=== PATIENT | male | born 1975 | race Hispanic/Latino ===

== ENCOUNTER 2020-09-24 12:54 | Inpatient (IN) | payer SELFPAY ==
[~2020-09-24] VITALS: Ht 172.7 cm; Wt 120.2 kg
[2020-09-24] MEDS ORDERED: DEXAMETHASONE SOD PHOS 10 MG/1 ML VIAL IV ONE (13:15)
[2020-09-24 14:13] LABS: BASOPHILS % 0.1 % (0.0-1.0); EOSINOPHILS % 0.2 % (0.0-6.0); HEMATOCRIT 40.2 % (38.2-49.6); HEMOGLOBIN 13.2 g/dL (14.0-18.0); LYMPHOCYTES # (AUTO) 0.6 (1.0-3.2); LYMPHOCYTES % 6.3 % (18.0-39.1); MEAN CORPUSCULAR HEMOGLOBIN 28.4 pg (28-32); MEAN CORPUSCULAR HGB CONC 32.8 g/dL (31-35); MEAN CORPUSCULAR VOLUME 86.6 fL (81-99); MONOCYTES # (AUTO) 0.3 (0.2-0.8); MONOCYTES % 2.9 % (4.4-11.3); NEUTROPHILS # (AUTO) 8.6 (2.1-6.9); PLATELET COUNT 299 x10e3/uL (140-360); RED BLOOD COUNT 4.64 x10e6/uL (4.3-5.7)
[2020-09-24 14:29] LABS: ALANINE AMINOTRANSFERASE 55 IU/L (0-55); ALBUMIN 2.9 g/dL (3.5-5.0); ALBUMIN/GLOBULIN RATIO 0.6 (0.8-2.0); ALKALINE PHOSPHATASE 108 IU/L (40-150); ANION GAP 16.3 mmol/L (8-16); BLOOD UREA NITROGEN 8 mg/dL (7-26); BUN/CREATININE RATIO 8 (6-25); CALCIUM 8.7 mg/dL (8.4-10.2); CARBON DIOXIDE 27 mmol/L (22-29); CHLORIDE 96 mmol/L (98-107); CREATININE, SERUM 0.97 mg/dL (0.72-1.25); EST GLOMERULAR FILTRATION RATE > 60 ML/MIN (60-); GLUCOSE 103 mg/dL (74-118); POTASSIUM 4.3 mmol/L (3.5-5.1); SODIUM 135 mmol/L (136-145)
[2020-09-24] MEDS ORDERED: ONDANSETRON HCL INJ 2MG/ML 2ML 2 MG/ML VIAL IV PRN (16:15)
[2020-09-24] MEDS ORDERED: MORPHINE SULFATE INJ 4 MG/ML INJ 1ML IV PRN (16:15)
[2020-09-24] MEDS ORDERED: MORPHINE SULFATE INJ 2 MG/ML SYR IV PRN (16:30)
[2020-09-24] MEDS ORDERED: AZITHROMYCIN 250 MG TAB PO ONE (20:30)
[2020-09-24] MEDS: CEFTRIAXONE SOD 1 GM/NS 50 ML 50 ML IV SCH (20:42)
[2020-09-24] MEDS ORDERED: SODIUM CHLORIDE 0.9% 1000ML 2,000 ML ONE (21:43)
[2020-09-24] MEDS ORDERED: ACETAMINOPHEN 325 MG TAB PO PRN (22:15)
[2020-09-24] MEDS: PANTOPRAZOLE SOD 40 MG TABEC PO SCH (22:43)
[2020-09-25 00:23] LABS: ABG HCO3 27 mmol/L (22-26); ABG PCO2 42 mmHg (35-45); ABG PH 7.42 (7.35-7.45); ABG PO2 61 mmHg (80-105); ABG TCO2 28
[2020-09-25 04:14] LABS: BASOPHILS % 0.1 % (0.0-1.0); HEMATOCRIT 37.8 % (38.2-49.6); HEMOGLOBIN 12.2 g/dL (14.0-18.0); LYMPHOCYTES # (AUTO) 0.6 (1.0-3.2); LYMPHOCYTES % 6.7 % (18.0-39.1); MEAN CORPUSCULAR HGB CONC 32.3 g/dL (31-35); MEAN CORPUSCULAR VOLUME 86.9 fL (81-99); MONOCYTES # (AUTO) 0.2 (0.2-0.8); MONOCYTES % 2.9 % (4.4-11.3); NEUTROPHILS # (AUTO) 7.5 (2.1-6.9); NEUTROPHILS % 89.7 % (38.7-80.0); PLATELET COUNT 316 x10e3/uL (140-360); RED BLOOD COUNT 4.35 x10e6/uL (4.3-5.7)
[2020-09-25 04:36] LABS: ALANINE AMINOTRANSFERASE 51 IU/L (0-55); ALBUMIN 2.7 g/dL (3.5-5.0); ALBUMIN/GLOBULIN RATIO 0.5 (0.8-2.0); ALKALINE PHOSPHATASE 113 IU/L (40-150); ANION GAP 16.5 mmol/L (8-16); BLOOD UREA NITROGEN 14 mg/dL (7-26); BUN/CREATININE RATIO 12 (6-25); CALCIUM 8.5 mg/dL (8.4-10.2); CARBON DIOXIDE 26 mmol/L (22-29); CHLORIDE 98 mmol/L (98-107); CREATININE, SERUM 1.14 mg/dL (0.72-1.25); EST GLOMERULAR FILTRATION RATE > 60 ML/MIN (60-); GLUCOSE 143 mg/dL (74-118); MAGNESIUM 2.4 MG/DL (1.3-2.1); POTASSIUM 4.5 mmol/L (3.5-5.1); SODIUM 136 mmol/L (136-145)
[2020-09-25] MEDS: DEXAMETHASONE SOD PHOS 10 MG/1 ML VIAL IV SCH (07:25)
[2020-09-25] MEDS: CEFTRIAXONE SOD 1 GM/NS 50 ML 50 ML IV SCH (07:25)
[2020-09-25] MEDS: PANTOPRAZOLE SOD 40 MG TABEC PO SCH (07:30)
[2020-09-25] MEDS ORDERED: AZITHROMYCIN 250 MG TAB PO SCH (09:00)
[2020-09-25 09:48] VITALS: BP 128/86
[2020-09-25 09:49] VITALS: BP 128/86
[2020-09-25 15:15] VITALS: BP 144/104
[2020-09-25] MEDS ORDERED: REMDESIVIR 200MG/NS 100ML 200 MG IV ONE (15:30)
[2020-09-25] MEDS ORDERED: IOPAMIDOL 370 MG/ML 200 ML INFUS..BTL INJ ONE (16:31)
[2020-09-25] MEDS ORDERED: SODIUM CHLORIDE 0.9% 50ML 50 ML ONE (16:31)
[2020-09-25] MEDS: ASCORBIC ACID 500 MG TAB PO SCH (18:10)
[2020-09-25 20:19] VITALS: BP 149/80
[2020-09-25 21:18] VITALS: BP 149/80
[2020-09-26] VITALS (7 sets, daily range): BP systolic 106–126; BP diastolic 64–88
[2020-09-26] MEDS: PANTOPRAZOLE SOD 40 MG TABEC PO SCH (07:59)
[2020-09-26] MEDS: DEXAMETHASONE SOD PHOS 10 MG/1 ML VIAL IV SCH (08:02)
[2020-09-26] MEDS: ZINC SULFATE 220 MG CAP PO SCH (08:02)
[2020-09-26] MEDS: ASCORBIC ACID 500 MG TAB PO SCH ×2 (08:02→16:44)
[2020-09-26] MEDS: AZITHROMYCIN 500MG/NS 250 ML 250 ML IV SCH (08:02)
[2020-09-26] MEDS: CEFTRIAXONE SOD 2 GM/NS 100 ML 100 ML IV SCH (08:02)
[2020-09-26] MEDS: ENOXAPARIN INJ 80 MG/0.8 ML SYR SC SCH (11:49)
[2020-09-26] MEDS: REMDESIVIR 100MG/NS 100ML 100 MG IV SCH (14:35)
[2020-09-26 14:45] LABS: BASOPHILS % 0.1 % (0.0-1.0); HEMATOCRIT 40.1 % (38.2-49.6); HEMOGLOBIN 12.7 g/dL (14.0-18.0); LYMPHOCYTES # (AUTO) 0.7 (1.0-3.2); LYMPHOCYTES % 6.8 % (18.0-39.1); MEAN CORPUSCULAR HEMOGLOBIN 27.8 pg (28-32); MEAN CORPUSCULAR HGB CONC 31.7 g/dL (31-35); MEAN CORPUSCULAR VOLUME 87.7 fL (81-99); MONOCYTES # (AUTO) 0.6 (0.2-0.8); MONOCYTES % 5.4 % (4.4-11.3); NEUTROPHILS # (AUTO) 9.1 (2.1-6.9); NEUTROPHILS % 86.7 % (38.7-80.0); PLATELET COUNT 422 x10e3/uL (140-360); RED BLOOD COUNT 4.57 x10e6/uL (4.3-5.7); RED CELL DISTRIBUTION WIDTH 14.4 % (11.7-14.4)
[2020-09-26 15:03] LABS: ALANINE AMINOTRANSFERASE 61 IU/L (0-55); ALBUMIN 2.6 g/dL (3.5-5.0); ALBUMIN/GLOBULIN RATIO 0.5 (0.8-2.0); ALKALINE PHOSPHATASE 87 IU/L (40-150); ANION GAP 17.9 mmol/L (8-16); BLOOD UREA NITROGEN 22 mg/dL (7-26); BUN/CREATININE RATIO 21 (6-25); CALCIUM 8.5 mg/dL (8.4-10.2); CARBON DIOXIDE 25 mmol/L (22-29); CHLORIDE 102 mmol/L (98-107); CREATININE, SERUM 1.04 mg/dL (0.72-1.25); EST GLOMERULAR FILTRATION RATE > 60 ML/MIN (60-); GLUCOSE 164 mg/dL (74-118); POTASSIUM 4.9 mmol/L (3.5-5.1); SODIUM 140 mmol/L (136-145)
[2020-09-26] MEDS ORDERED: HYDROCODONE/APAP 5MG-325MG TAB PO PRN (16:00)
[2020-09-26] MEDS: ALBUTEROL SULFATE HFA 8GM INHALATION AEROSOL INH SCH (20:15)
[2020-09-27] VITALS (7 sets, daily range): BP systolic 97–109; BP diastolic 51–81
[2020-09-27] MEDS: ALBUTEROL SULFATE HFA 8GM INHALATION AEROSOL INH SCH ×5 (02:30→23:32)
[2020-09-27 04:49] LABS: BASOPHILS % 0.1 % (0.0-1.0); HEMATOCRIT 39.1 % (38.2-49.6); HEMOGLOBIN 12.6 g/dL (14.0-18.0); LYMPHOCYTES # (AUTO) 1.2 (1.0-3.2); LYMPHOCYTES % 10.1 % (18.0-39.1); MEAN CORPUSCULAR HEMOGLOBIN 28.4 pg (28-32); MEAN CORPUSCULAR HGB CONC 32.2 g/dL (31-35); MEAN CORPUSCULAR VOLUME 88.3 fL (81-99); MONOCYTES # (AUTO) 0.8 (0.2-0.8); MONOCYTES % 7.1 % (4.4-11.3); NEUTROPHILS # (AUTO) 9.4 (2.1-6.9); NEUTROPHILS % 81.6 % (38.7-80.0); PLATELET COUNT 442 x10e3/uL (140-360); RED BLOOD COUNT 4.43 x10e6/uL (4.3-5.7); RED CELL DISTRIBUTION WIDTH 14.2 % (11.7-14.4)
[2020-09-27 05:18] LABS: ALANINE AMINOTRANSFERASE 66 IU/L (0-55); ALBUMIN 2.6 g/dL (3.5-5.0); ALBUMIN/GLOBULIN RATIO 0.6 (0.8-2.0); ALKALINE PHOSPHATASE 85 IU/L (40-150); ANION GAP 16.6 mmol/L (8-16); BLOOD UREA NITROGEN 25 mg/dL (7-26); BUN/CREATININE RATIO 26 (6-25); CALCIUM 8.2 mg/dL (8.4-10.2); CARBON DIOXIDE 26 mmol/L (22-29); CHLORIDE 101 mmol/L (98-107); CREATININE, SERUM 0.98 mg/dL (0.72-1.25); EST GLOMERULAR FILTRATION RATE > 60 ML/MIN (60-); GLUCOSE 122 mg/dL (74-118); POTASSIUM 4.6 mmol/L (3.5-5.1); SODIUM 139 mmol/L (136-145)
[2020-09-27] MEDS: CEFTRIAXONE SOD 2 GM/NS 100 ML 100 ML IV SCH (08:22)
[2020-09-27] MEDS: DEXAMETHASONE SOD PHOS 10 MG/1 ML VIAL IV SCH (08:22)
[2020-09-27] MEDS: AZITHROMYCIN 500MG/NS 250 ML 250 ML IV SCH (08:22)
[2020-09-27] MEDS: ZINC SULFATE 220 MG CAP PO SCH (08:22)
[2020-09-27] MEDS: PANTOPRAZOLE SOD 40 MG TABEC PO SCH (08:22)
[2020-09-27] MEDS: ASCORBIC ACID 500 MG TAB PO SCH ×2 (08:22→17:45)
[2020-09-27] MEDS: ENOXAPARIN INJ 80 MG/0.8 ML SYR SC SCH (11:48)
[2020-09-27] MEDS: REMDESIVIR 100MG/NS 100ML 100 MG IV SCH (15:50)
[2020-09-28 03:00] VITALS: BP 117/83
[2020-09-28 05:19] LABS: BASOPHILS % 0.3 % (0.0-1.0); HEMATOCRIT 40.2 % (38.2-49.6); HEMOGLOBIN 12.7 g/dL (14.0-18.0); LYMPHOCYTES # (AUTO) 1.5 (1.0-3.2); LYMPHOCYTES % 12.9 % (18.0-39.1); MEAN CORPUSCULAR HGB CONC 31.6 g/dL (31-35); MEAN CORPUSCULAR VOLUME 88.5 fL (81-99); MONOCYTES % 8.2 % (4.4-11.3); NEUTROPHILS # (AUTO) 8.9 (2.1-6.9); NEUTROPHILS % 75.8 % (38.7-80.0); PLATELET COUNT 511 x10e3/uL (140-360); RED BLOOD COUNT 4.54 x10e6/uL (4.3-5.7); RED CELL DISTRIBUTION WIDTH 14.1 % (11.7-14.4)
[2020-09-28 05:38] LABS: ALANINE AMINOTRANSFERASE 56 IU/L (0-55); ALBUMIN 2.6 g/dL (3.5-5.0); ALBUMIN/GLOBULIN RATIO 0.6 (0.8-2.0); ALKALINE PHOSPHATASE 78 IU/L (40-150); ANION GAP 14.6 mmol/L (8-16); BLOOD UREA NITROGEN 24 mg/dL (7-26); BUN/CREATININE RATIO 24 (6-25); CALCIUM 8.2 mg/dL (8.4-10.2); CARBON DIOXIDE 26 mmol/L (22-29); CHLORIDE 102 mmol/L (98-107); CREATININE, SERUM 0.98 mg/dL (0.72-1.25); EST GLOMERULAR FILTRATION RATE > 60 ML/MIN (60-); GLUCOSE 109 mg/dL (74-118); POTASSIUM 4.6 mmol/L (3.5-5.1); SODIUM 138 mmol/L (136-145)
[2020-09-28] MEDS: ALBUTEROL SULFATE HFA 8GM INHALATION AEROSOL INH SCH ×3 (07:00→19:00)
[2020-09-28 08:00] VITALS: BP 108/71
[2020-09-28 10:20] VITALS: BP 117/83
[2020-09-28] MEDS: AZITHROMYCIN 500MG/NS 250 ML 250 ML IV SCH (10:33)
[2020-09-28] MEDS: ASCORBIC ACID 500 MG TAB PO SCH ×2 (10:33→17:44)
[2020-09-28] MEDS: PANTOPRAZOLE SOD 40 MG TABEC PO SCH (10:33)
[2020-09-28] MEDS: ZINC SULFATE 220 MG CAP PO SCH (10:33)
[2020-09-28] MEDS: ENOXAPARIN INJ 80 MG/0.8 ML SYR SC SCH (10:33)
[2020-09-28] MEDS: DEXAMETHASONE SOD PHOS 10 MG/1 ML VIAL IV SCH (10:33)
[2020-09-28] MEDS: CEFTRIAXONE SOD 2 GM/NS 100 ML 100 ML IV SCH (10:41)
[2020-09-28] MEDS: REMDESIVIR 100MG/NS 100ML 100 MG IV SCH (15:15)
[2020-09-28 17:44] VITALS: BP 110/85
[2020-09-28 19:00] VITALS: BP 114/63
[2020-09-28 23:00] VITALS: BP 97/53
[2020-09-29] VITALS (7 sets, daily range): BP systolic 98–120; BP diastolic 59–73
[2020-09-29] MEDS: ALBUTEROL SULFATE HFA 8GM INHALATION AEROSOL INH SCH ×4 (01:00→19:00)
[2020-09-29 04:55] LABS: BASOPHILS % 0.3 % (0.0-1.0); EOSINOPHILS % 0.3 % (0.0-6.0); HEMATOCRIT 38.9 % (38.2-49.6); HEMOGLOBIN 12.6 g/dL (14.0-18.0); LYMPHOCYTES # (AUTO) 1.7 (1.0-3.2); LYMPHOCYTES % 14.6 % (18.0-39.1); MEAN CORPUSCULAR HEMOGLOBIN 28.4 pg (28-32); MEAN CORPUSCULAR HGB CONC 32.4 g/dL (31-35); MEAN CORPUSCULAR VOLUME 87.8 fL (81-99); MONOCYTES # (AUTO) 1.1 (0.2-0.8); MONOCYTES % 9.3 % (4.4-11.3); NEUTROPHILS # (AUTO) 8.5 (2.1-6.9); NEUTROPHILS % 71.2 % (38.7-80.0); PLATELET COUNT 495 x10e3/uL (140-360); RED BLOOD COUNT 4.43 x10e6/uL (4.3-5.7); RED CELL DISTRIBUTION WIDTH 13.9 % (11.7-14.4)
[2020-09-29 05:16] LABS: ALANINE AMINOTRANSFERASE 47 IU/L (0-55); ALBUMIN 2.5 g/dL (3.5-5.0); ALBUMIN/GLOBULIN RATIO 0.7 (0.8-2.0); ALKALINE PHOSPHATASE 71 IU/L (40-150); ANION GAP 13.3 mmol/L (8-16); BLOOD UREA NITROGEN 22 mg/dL (7-26); BUN/CREATININE RATIO 24 (6-25); CALCIUM 8.1 mg/dL (8.4-10.2); CARBON DIOXIDE 26 mmol/L (22-29); CHLORIDE 101 mmol/L (98-107); CREATININE, SERUM 0.92 mg/dL (0.72-1.25); EST GLOMERULAR FILTRATION RATE > 60 ML/MIN (60-); GLUCOSE 102 mg/dL (74-118); POTASSIUM 4.3 mmol/L (3.5-5.1); SODIUM 136 mmol/L (136-145)
[2020-09-29] MEDS: PANTOPRAZOLE SOD 40 MG TABEC PO SCH ×2 (07:30→16:19)
[2020-09-29] MEDS: ASCORBIC ACID 500 MG TAB PO SCH ×2 (16:07→16:20)
[2020-09-29] MEDS: DEXAMETHASONE SOD PHOS 10 MG/1 ML VIAL IV SCH (16:19)
[2020-09-29] MEDS: ZINC SULFATE 220 MG CAP PO SCH (16:19)
[2020-09-29] MEDS: ENOXAPARIN INJ 80 MG/0.8 ML SYR SC SCH (16:23)
[2020-09-29] MEDS: CEFTRIAXONE SOD 2 GM/NS 100 ML 100 ML IV SCH (16:25)
[2020-09-29] MEDS: REMDESIVIR 100MG/NS 100ML 100 MG IV SCH (16:49)
[2020-09-30] VITALS (8 sets, daily range): BP systolic 95–123; BP diastolic 52–73
[2020-09-30] MEDS: ALBUTEROL SULFATE HFA 8GM INHALATION AEROSOL INH SCH ×4 (01:00→20:10)
[2020-09-30 07:07] LABS: ALANINE AMINOTRANSFERASE 47 IU/L (0-55); ALBUMIN 2.6 g/dL (3.5-5.0); ALBUMIN/GLOBULIN RATIO 0.7 (0.8-2.0); ALKALINE PHOSPHATASE 88 IU/L (40-150); ANION GAP 13.5 mmol/L (8-16); BLOOD UREA NITROGEN 21 mg/dL (7-26); BUN/CREATININE RATIO 22 (6-25); CALCIUM 8.3 mg/dL (8.4-10.2); CARBON DIOXIDE 27 mmol/L (22-29); CHLORIDE 100 mmol/L (98-107); CREATININE, SERUM 0.97 mg/dL (0.72-1.25); EST GLOMERULAR FILTRATION RATE > 60 ML/MIN (60-); GLUCOSE 109 mg/dL (74-118); POTASSIUM 4.5 mmol/L (3.5-5.1); SODIUM 136 mmol/L (136-145)
[2020-09-30 07:13] LABS: BASOPHILS # (AUTO) 0.1 (0.0-0.1); BASOPHILS % 0.4 % (0.0-1.0); EOSINOPHILS # (AUTO) 0.1 (0.0-0.4); EOSINOPHILS % 0.5 % (0.0-6.0); HEMATOCRIT 40.9 % (38.2-49.6); HEMOGLOBIN 13.1 g/dL (14.0-18.0); LYMPHOCYTES # (AUTO) 1.2 (1.0-3.2); LYMPHOCYTES % 10.4 % (18.0-39.1); MEAN CORPUSCULAR HEMOGLOBIN 28.2 pg (28-32); NEUTROPHILS # (AUTO) 9.1 (2.1-6.9); NEUTROPHILS % 76.2 % (38.7-80.0); PLATELET COUNT 549 x10e3/uL (140-360); RED BLOOD COUNT 4.65 x10e6/uL (4.3-5.7)
[2020-09-30] MEDS: DEXAMETHASONE SOD PHOS 10 MG/1 ML VIAL IV SCH (09:46)
[2020-09-30] MEDS: CHOLECALCIFEROL 400 UNIT TAB PO SCH (09:47)
[2020-09-30] MEDS: ZINC SULFATE 220 MG CAP PO SCH (09:47)
[2020-09-30] MEDS: ASCORBIC ACID 500 MG TAB PO SCH ×2 (09:47→19:55)
[2020-09-30] MEDS: PANTOPRAZOLE SOD 40 MG TABEC PO SCH (09:55)
[2020-09-30] MEDS: CEFTRIAXONE SOD 2 GM/NS 100 ML 100 ML IV SCH (09:55)
[2020-09-30] MEDS: ENOXAPARIN INJ 80 MG/0.8 ML SYR SC SCH (11:58)
[2020-10-01] VITALS (9 sets, daily range): BP systolic 93–141; BP diastolic 46–81
[2020-10-01] MEDS: ALBUTEROL SULFATE HFA 8GM INHALATION AEROSOL INH SCH ×3 (01:20→13:00)
[2020-10-01 06:32] LABS: ALANINE AMINOTRANSFERASE 32 IU/L (0-55); ALBUMIN 2.5 g/dL (3.5-5.0); ALBUMIN/GLOBULIN RATIO 0.7 (0.8-2.0); ALKALINE PHOSPHATASE 86 IU/L (40-150); ANION GAP 12.3 mmol/L (8-16); BLOOD UREA NITROGEN 20 mg/dL (7-26); BUN/CREATININE RATIO 22 (6-25); CALCIUM 8.1 mg/dL (8.4-10.2); CARBON DIOXIDE 29 mmol/L (22-29); CHLORIDE 102 mmol/L (98-107); EST GLOMERULAR FILTRATION RATE > 60 ML/MIN (60-); GLUCOSE 129 mg/dL (74-118); POTASSIUM 4.3 mmol/L (3.5-5.1); SODIUM 139 mmol/L (136-145)
[2020-10-01 07:20] LABS: BASOPHILS % 0.3 % (0.0-1.0); EOSINOPHILS # (AUTO) 0.2 (0.0-0.4); EOSINOPHILS % 1.3 % (0.0-6.0); HEMATOCRIT 40.5 % (38.2-49.6); LYMPHOCYTES # (AUTO) 1.6 (1.0-3.2); LYMPHOCYTES % 12.7 % (18.0-39.1); MEAN CORPUSCULAR HEMOGLOBIN 28.3 pg (28-32); MEAN CORPUSCULAR HGB CONC 32.1 g/dL (31-35); MEAN CORPUSCULAR VOLUME 88.2 fL (81-99); MONOCYTES # (AUTO) 1.2 (0.2-0.8); MONOCYTES % 9.1 % (4.4-11.3); NEUTROPHILS # (AUTO) 9.2 (2.1-6.9); NEUTROPHILS % 72.7 % (38.7-80.0); PLATELET COUNT 551 x10e3/uL (140-360); RED BLOOD COUNT 4.59 x10e6/uL (4.3-5.7); RED CELL DISTRIBUTION WIDTH 14.1 % (11.7-14.4)
[2020-10-01] MEDS: PANTOPRAZOLE SOD 40 MG TABEC PO SCH (08:02)
[2020-10-01] MEDS: ASCORBIC ACID 500 MG TAB PO SCH ×2 (08:03→17:05)
[2020-10-01] MEDS: DEXAMETHASONE SOD PHOS 10 MG/1 ML VIAL IV SCH (08:03)
[2020-10-01] MEDS: CHOLECALCIFEROL 400 UNIT TAB PO SCH (08:03)
[2020-10-01] MEDS: ZINC SULFATE 220 MG CAP PO SCH (08:03)
[2020-10-01] MEDS: ENOXAPARIN INJ 80 MG/0.8 ML SYR SC SCH (12:19)
[2020-10-02 00:04] VITALS: BP 91/69
[2020-10-02 04:20] VITALS: BP 108/63
[2020-10-02 06:11] LABS: BASOPHILS % 0.3 % (0.0-1.0); EOSINOPHILS % 0.3 % (0.0-6.0); HEMATOCRIT 40.1 % (38.2-49.6); LYMPHOCYTES # (AUTO) 1.6 (1.0-3.2); LYMPHOCYTES % 11.2 % (18.0-39.1); MEAN CORPUSCULAR HEMOGLOBIN 28.4 pg (28-32); MEAN CORPUSCULAR HGB CONC 32.4 g/dL (31-35); MEAN CORPUSCULAR VOLUME 87.7 fL (81-99); MONOCYTES # (AUTO) 1.1 (0.2-0.8); MONOCYTES % 7.7 % (4.4-11.3); NEUTROPHILS # (AUTO) 10.9 (2.1-6.9); NEUTROPHILS % 77.6 % (38.7-80.0); PLATELET COUNT 539 x10e3/uL (140-360); RED BLOOD COUNT 4.57 x10e6/uL (4.3-5.7); RED CELL DISTRIBUTION WIDTH 14.1 % (11.7-14.4)
[2020-10-02 06:34] LABS: ALANINE AMINOTRANSFERASE 29 IU/L (0-55); ALBUMIN 2.7 g/dL (3.5-5.0); ALBUMIN/GLOBULIN RATIO 0.8 (0.8-2.0); ALKALINE PHOSPHATASE 68 IU/L (40-150); ANION GAP 12.3 mmol/L (8-16); BLOOD UREA NITROGEN 26 mg/dL (7-26); BUN/CREATININE RATIO 24 (6-25); CALCIUM 8.3 mg/dL (8.4-10.2); CARBON DIOXIDE 31 mmol/L (22-29); CHLORIDE 98 mmol/L (98-107); CREATININE, SERUM 1.09 mg/dL (0.72-1.25); EST GLOMERULAR FILTRATION RATE > 60 ML/MIN (60-); GLUCOSE 98 mg/dL (74-118); POTASSIUM 4.3 mmol/L (3.5-5.1); SODIUM 137 mmol/L (136-145)
[2020-10-02 08:41] VITALS: BP 102/96
[2020-10-02] MEDS: PANTOPRAZOLE SOD 40 MG TABEC PO SCH (08:57)
[2020-10-02] MEDS: ASCORBIC ACID 500 MG TAB PO SCH (08:57)
[2020-10-02] MEDS: ZINC SULFATE 220 MG CAP PO SCH (08:57)
[2020-10-02] MEDS: CHOLECALCIFEROL 400 UNIT TAB PO SCH (08:57)
[2020-10-02] MEDS ORDERED: DEXAMETHASONE 4 MG TAB PO SCH (09:00)
[2020-10-02] MEDS ORDERED: APIXAB 2.5 MG TABLET PO SCH (09:00)
[2020-10-02 09:03] VITALS: BP 102/96
[2020-10-02] MEDS ORDERED: DECADRON4 M1 PO (10:09)
[2020-10-02] MEDS ORDERED: PROTONIX40 MG/ML PO (10:09)
[2020-10-02] MEDS ORDERED: ELIQUIS2.5 MG PO (10:09)
[2020-10-02] MEDS ORDERED: ONDANSETRON HCL 4 MG ORAL DISINTEGRATING TAB PO PRN (14:00)
[2020-10-02] MEDS ORDERED: OMEPRAZOLE40 MG PO (15:35)
== END 2020-10-02 16:12 | disposition home or self-care (01) | DRG 177 ==
LOC: ER 12:58 → ERHOLD 16:05 → IMCU 09-25 09:30 → OBSVTOIN 09-25 11:22 → MED/SURG3 10-01 16:43
PROVIDERS: ADMIT Internal Medicine; ATTEND Internal Medicine
PROC: 02HV33Z Insertion of Infusion Device into Superior Vena Cava, Percutaneous Approach (ICD-10-PCS; principal; 2020-09-25)
PROC: B548ZZA Ultrasonography of Superior Vena Cava, Guidance (ICD-10-PCS; 2020-09-25)
PROC: 8E0ZXY6 Isolation (ICD-10-PCS; 2020-09-25)
PROC: XW033E5 Introduction of Remdesivir Anti-infective into Peripheral Vein, Percutaneous Approach, New Technology Group 5 (ICD-10-PCS; 2020-09-25)
PROC: 3E0333Z Introduction of Anti-inflammatory into Peripheral Vein, Percutaneous Approach (ICD-10-PCS; 2020-09-25)
DX: U07.1 COVID-19 (principal); J12.82 Pneumonia due to coronavirus disease 2019; J96.01 Acute respiratory failure with hypoxia; J15.9 Unspecified bacterial pneumonia; Z68.41 Body mass index [BMI] 40.0-44.9, adult; E66.01 Morbid (severe) obesity due to excess calories
CPT/HCPCS: 36415; 36569; 36600; 71045; 71260; 80053; 82805; 83518; 83605; 83735; 84484; 85025; 85379; 87040; 87070; 87205; 87449; 94664; 99285; G0378; J0456; J0696; J1100; J1650; J2270; J7030; Q9967; U0002